=== PATIENT | male | born 1960 | race Caucasian/White ===

== ENCOUNTER 2024-04-05 15:46 | Inpatient (IN) | payer MEDICARE, OTHER ==
[2024-04-05 21:10] VITALS: BMI 28.2
[2024-04-05] MEDS ORDERED: BISMUTH SUBSALICYLATE 524 MG/30 ML PO PRN (22:36)
[2024-04-05] MEDS ORDERED: BENZONATATE 200 MG CAPSULE PO PRN (22:36)
[2024-04-05] MEDS ORDERED: ACETAMINOPHEN 325 MG TABLET (FP) PO PRN (22:36)
[2024-04-05] MEDS ORDERED: guaiFENesin 600 MG TABLET.ER (FP) PO PRN (22:36)
[2024-04-05] MEDS ORDERED: NALOXONE HCL (KLOXXADO) 8 MG SPRAY NS PRN (22:36)
[2024-04-05] MEDS ORDERED: BENZOCAINE/MENTHOL (CHLORASEPTIC ) LOZENGE MM PRN (22:36)
[2024-04-05] MEDS ORDERED: ONDANSETRON *ODT* 4 MG TABLET SL PRN (22:36)
[2024-04-05] MEDS ORDERED: P-EPHED 60MG/TRIPROLIDI 2.5MG TABLET PO PRN (22:36)
[2024-04-05] MEDS ORDERED: IBUPROFEN 400 MG TABLET (FP) PO PRN (22:36)
[2024-04-05] MEDS ORDERED: POLYETHYLENE GLYCOL (HEALTHYLAX) 3350 17 GM PACKET PO PRN (22:36)
[2024-04-05] MEDS ORDERED: MAGNESIUM HYDROX 2400MG/30ML ORAL SUSPENSION 30 ML CUP PO PRN (22:36)
[2024-04-05] MEDS ORDERED: MAG HYDROX/AL HYDROX/SIMETH 30 ML UNIT-DOSE CUP PO PRN (22:36)
[2024-04-05] MEDS ORDERED: LOPERAMIDE HCL 2 MG CAPSULE PO PRN (22:36)
[2024-04-06] MEDS ORDERED: diazePAM 5 MG TABLET ONE ×3 (00:20→10:07)
[2024-04-06] MEDS: diazePAM 5 MG TABLET PO SCH (00:22)
[2024-04-06] MEDS ORDERED: PRENATAL VITAMINS W/ FOLIC ACID TABLET (FP) PO ONE (10:05)
[2024-04-06] MEDS: PRENATAL VITAMINS W/ FOLIC ACID TABLET (FP) PO SCH (10:10)
[2024-04-06] MEDS ORDERED: methaDONE HCL 10 MG TABLET PO SCH (11:45)
[2024-04-06] MEDS: MONTELUKAST NA 10 MG TABLET PO SCH (12:25)
[2024-04-06] MEDS: FLUTICASONE/UMECLIDIN/VILANTER(100-62.5-25 TRELEGY ELLIPTA) INAHLER IH SCH (12:25)
[2024-04-06] MEDS: MELATONIN 5 MG TABLETS PO SCH (22:11)
[2024-04-06] MEDS: diazePAM 5 MG TABLET PO PRN (22:13)
[2024-04-06] MEDS: THIAMINE 100 MG TABLET PO SCH (22:13)
[2024-04-07] MEDS: diazePAM 5 MG TABLET PO SCH (05:39)
[2024-04-07] MEDS: PANTOPRAZOLE 20 MG TABLET PO SCH (06:08)
[2024-04-07] MEDS: SERTRALINE HCL 50 MG TABLET (FP) PO SCH (22:21)
[2024-04-07] MEDS: QUEtiapine FUMARATE 200 MG TABLET PO SCH (22:21)
[2024-04-08] MEDS: diazePAM 5 MG TABLET PO ONE (05:46)
[2024-04-08 14:41] LABS: POTASSIUM 4.3 mmol/L (3.5-5.1)
[2024-04-08 14:43] LABS: HEMATOCRIT 32.6 % (35.4-49); HEMOGLOBIN 10.8 GM/dL (11.7-16.9); MCH 31.6 pg (25.7-33.7); MCHC 33.2 g/dl (32.0-35.9); MEAN CELL VOLUME 95.1 fl (80-96); MEAN PLT VOLUME 9.2 fl (7.5-11.1); PLATELET COUNT 252 10^3/uL (134-434); RBC 3.43 M/mm3 (4.00-5.60); RDW 15.1 % (11.9-15.9); WHITE BLOOD COUNT 7.2 K/mm3 (4.0-10.0)
[2024-04-08 14:44] LABS: CALCIUM 9.2 mg/dL (8.5-10.1)
[2024-04-08 14:45] LABS: ALBUMIN 3.4 g/dl (3.4-5.0); BLOOD UREA NITROGEN 26.1 mg/dL (7-18)
[2024-04-08 14:48] LABS: CREATININE 1.3 mg/dL (0.55-1.3)
[2024-04-08 14:49] LABS: BILIRUBIN,TOTAL 0.3 mg/dL (0.2-1); TOT PROT 6.6 g/dl (6.4-8.2)
[2024-04-10] MEDS: MONTELUKAST NA 10 MG TABLET PO SCH (05:38)
[2024-04-10] MEDS: FLUTICASONE/UMECLIDIN/VILANTER(100-62.5-25 TRELEGY ELLIPTA) INAHLER IH SCH (05:41)
[2024-04-12] MEDS: traZODone HCL 100 MG TABLET (FP) PO SCH (21:20)
[2024-04-13] MEDS ORDERED: methaDONE HCL 10 MG TABLET PO SCH (06:00)
[2024-04-15] MEDS: IBUPROFEN 600 MG TABLET (FP) PO PRN (21:26)
[2024-04-16] MEDS ORDERED: DICLOFENAC SODIUM PO PRN ×3 (14:03→15:30)
[2024-04-16] MEDS: GABAPENTIN 300 MG CAPSULE PO SCH (16:57)
[2024-04-17] MEDS ORDERED: GABAPENTIN 300 MG PO SCH (10:00)
[2024-04-17] MEDS: BACLOFEN 10 MG TABLET (FP) PO ONE (10:19)
[2024-04-17] MEDS: GABAPENTIN 300 MG CAPSULE PO SCH (10:20)
[2024-04-18] MEDS: LIDOCAINE 5% TOPICAL PATCH TP SCH (14:42)
[2024-04-18] MEDS: LIDOCAINE PATCH REMOVAL MC SCH (21:15)
[2024-04-19] MEDS ORDERED: PRENATAL VITAMINS W/ FOLIC ACID TABLET (FP) PO PRN (09:06)
[2024-04-19] MEDS: GABAPENTIN 300 MG CAPSULE PO SCH (18:23)
[2024-04-20] MEDS: LIDOCAINE 5% TOPICAL PATCH TP SCH (06:51)
[2024-04-20] MEDS: PANTOPRAZOLE 20 MG TABLET PO SCH (06:52)
[2024-04-20] MEDS ORDERED: LACTULOSE 20 GM/30 ML UDC (FOR ORAL USE ONLY) PO PRN (11:26)
[2024-04-20] MEDS ORDERED: LYTES/YERBA SANTA 240 ML BOTTLE MM PRN (11:40)
[2024-04-26] MEDS: ALBUTEROL SO4 2.5/IPRATROPIUM 0.5 INH SOL 3 ML VIAL.NEB. NEB PRN (09:26)
[2024-04-26] MEDS: DOCUSATE SODIUM 100 MG CAPSULE (FP) PO PRN (13:38)
[2024-04-26] MEDS: ALBUTEROL SO4 0.083% IH SOL 2.5 MG/3 ML VIAL.NEB. NEB PRN (16:07)
[2024-05-03 06:52] VITALS: BP 116/58; RESP 16; TEMP 98.4
[2024-05-03 12:15] VITALS: PULSE 76
== END 2024-05-04 09:58 | disposition home or self-care (01) | DRG 895 ==
LOC: YASAS 15:46 → Y6N 04-06 09:42 → Y3NR 04-09 12:42 → Y3W 04-10 14:30
PROVIDERS: ADMIT Allergy & Immunology; ATTEND Psychiatry & Neurology Pain Medicine
PROC: HZ42ZZZ Group Counseling for Substance Abuse Treatment, Cognitive-Behavioral (ICD-10-PCS; principal; 2024-04-06)
DX: F11.20 Opioid dependence, uncomplicated (principal); F14.20 Cocaine dependence, uncomplicated; F10.20 Alcohol dependence, uncomplicated; F17.210 Nicotine dependence, cigarettes, uncomplicated; F31.9 Bipolar disorder, unspecified; J45.909 Unspecified asthma, uncomplicated; K21.9 Gastro-esophageal reflux disease without esophagitis; K59.00 Constipation, unspecified; M17.0 Bilateral primary osteoarthritis of knee; R60.0 Localized edema; Z87.448 Personal history of other diseases of urinary system; Z86.19 Personal history of other infectious and parasitic diseases; Z80.0 Family history of malignant neoplasm of digestive organs
CPT/HCPCS: 36415; 80053; 80305; 80307; 82962; 85027; 86593; 86780; 87811; 93005; 93010; 94640; J0475